=== PATIENT | female | born 1970 | race African-American/Black ===

== ENCOUNTER 2019-01-30 13:42 | Inpatient (IN) | payer SELFPAY ==
[2019-01-30] MEDS ORDERED: ONDANSETRON *ODT* 4 MG TABLET SL ONE (13:47)
--- NOTE | 2019-01-30 13:52 | PDOC ---
Rapid Medical Evaluation Chief Complaint: Nausea/Vomiting Time Seen by Provider: 01/30/19 13:47 Medical Evaluation: Allergies Allergy/AdvReac Type Severity Reaction Status Date / Time No Known Allergies Allergy Verified 01/30/19 13:46 01/30/19 13:49 I have performed a brief in-person evaluation of this patient. The patient presents with a chief complaint of: h/o DM presenting with complains of persistent nausea and vomiting since yesterday. report eating home cooked vegetables and cheeses yesterday before symptoms started. Denies fever, chills Pertinent physical exam findings: A&O in moderate distress vomiting in triage I have ordered the following: CBC, CMP, lipase. zofran The patient will proceed to the ED for further evaluation. Discharge Disposition - Diagnosis Nausea & vomiting Qualifiers: Vomiting type: bilious vomiting Qualified Code(s): R11.14 - Bilious vomiting - Discharge Dispostion Condition at time of disposition: Stable - Referrals - Patient Instructions - Post Discharge Activity
[2019-01-30] MEDS ORDERED: SODIUM CHLORIDE 0.9% 500 ML INFUS.BAG IV ONE (14:35)
[2019-01-30] MEDS ORDERED: ONDANSETRON 4 MG/2 ML VIAL ONE (14:37)
--- NOTE | 2019-01-30 14:48 | PDOC ---
History of Present Illness - General History Source: Patient Exam Limitations: No Limitations - History of Present Illness Initial Comments: 01/30/19 14:41 Source: Pt, poor historian, tangential answers HPI: 48yo woman h/o DM (diet controlled), cholesterol (diet controlled), and uterine fibroids (painful during 1st , not subsequent two) presenting with 1 day of nausea/vomiting. Pt was in [place] until yesterday midday when she vomited up her meal of veggies / fat free cheese / milk. She reports she only eats home prepared food and has eaten these many times before. Endorses lack of sleep 2/2 abdominal pain. Poor historian, difficult to ascertain details about her abdominal pain aside from epigastric, severe, with accompanying n/v, sudden onset. Denies fevers, chills, weakness, SOB, dizziness, CP, nightsweats, travel , diarrhea (last BM day before yesterday). Attempted drinking V8 juice several times, each time vomiting. Unable to provide her LMP, says it was this month and that she is not concerned about that. All: NKDA Meds: MVI, Iron PMH: as above PSH: denies <Skyler Kirkland - Last Filed: 01/31/19 00:10> <Maria Guadalupe Mccann - Last Filed: 02/09/19 00:41> - General Chief Complaint: Nausea/Vomiting Stated Complaint: ABD PAIN / VOMITING Time Seen by Provider: 01/30/19 13:47 Past History - Travel Traveled outside of the country in the last 30 days: No Close contact w/someone who was outside of country & ill: No - Past Medical History Asthma: No Cancer: No Cardiac Disorders: No COPD: No Diabetes: Yes HTN: No Seizures: No Thyroid Disease: No - Reproductive History Is Patient Now?: No - Immunization History Immunization Up to Date: Yes - Suicide/Smoking/Psychosocial Hx Smoking Status: No Smoking History: Never smoked Number of Cigarettes Smoked Daily: 0 Hx Alcohol Use: No Drug/Substance Use Hx: No Hx Substance Use Treatment: No <Skyler Kirkland - Last Filed: 01/31/19 00:10> <Maria Guadalupe Mccann - Last Filed: 02/09/19 00:41> - Past Medical History Allergies/Adverse Reactions: Allergies Allergy/AdvReac Type Severity Reaction Status Date / Time No Known Allergies Allergy Verified 01/30/19 13:46 Home Medications: Ambulatory Orders Ferrous Sulfate [Iron] 325 mg PO DAILY 01/31/19 Review of Systems - Review of Systems Able to Perform ROS?: Yes (Indirect answers) Is the patient limited Maldivian proficient: Yes Constitutional: Yes: Loss of Appetite. No: Chills, Fever, Night Sweats, Weakness HEENTM: No: Symptoms Reported Respiratory: No: Symptoms reported Cardiac (ROS): No: Symptoms Reported ABD/GI: Yes: Symptoms Reported, See HPI, Nausea, Poor Appetite, Poor Fluid Intake, Vomiting. No: Abdominal Distended, Constipated, Diarrhea, Indigestion : No: Symptoms Reported Musculoskeletal: No: Symptoms Reported Integumentary: No: Symptoms Reported Neurological: No: Symptoms reported All Other Systems: Reviewed and Negative <Skyler Kirkland - Last Filed: 01/31/19 00:10> *Physical Exam - Vital Signs Last Vital Signs Temp Pulse Resp BP Pulse Ox 98.1 F 85 18 119/64 100 01/30/19 13:47 01/30/19 13:47 01/30/19 13:47 01/30/19 13:47 01/30/19 13:47 - Physical Exam Comments: 01/30/19 14:50 Vitals reviewed, afebrile, HDS Gen: Thin woman laying in bed on her side with emesis bag beside her CV: RRR, nl s1/s2, no murmurs appreciated Pulm: CTABL, no wheezes / rales / rhonchi, normal work of breathing Abd: Soft, no reboudn or guarding, nontender throughout based on reactions - reportedly "painful" in epigastrum, no scars or markings Ext: WWP, no clubbing / cyanosis / edema Pulses: 2+ radial and PT <Skyler Kirkland - Last Filed: 01/31/19 00:10> - Vital Signs Last Vital Signs Temp Pulse Resp BP Pulse Ox 99.4 F 70 20 98/48 L 97 02/01/19 13:55 02/01/19 13:55 02/01/19 13:55 02/01/19 13:55 01/31/19 21:00 <Maria Guadalupe Mccann - Last Filed: 02/09/19 00:41> ED Treatment Course - LABORATORY CBC & Chemistry Diagram: 01/30/19 15:30 01/30/19 20:40 <Skyler Kirkland - Last Filed: 01/31/19 00:10> - LABORATORY CBC & Chemistry Diagram: 02/01/19 06:05 02/01/19 06:05 - ADDITIONAL ORDERS Additional order review: 01/30/19 15:16 Urine Culture - Final Urine - Urine Clean Catch Staphylococcus Aureus 01/30/19 15:30 RBC 4.25 MCV 88.1 MCHC 34.2 RDW 13.6 MPV 10.1 Neutrophils % 83.5 H Lymphocytes % 11.0 Monocytes % 5.2 Eosinophils % 0.1 Basophils % 0.2 - Medications Given in the ED: ED Medications Discontinued Medications Generic Name Dose Route Start Last Admin Trade Name Munir PRN Reason Stop Dose Admin Acetaminophen 650 mg 01/30/19 16:21 01/30/19 16:44 Tylenol - PO 01/30/19 16:22 650 mg ONCE ONE Administration Acetaminophen 650 mg 01/31/19 01:11 01/31/19 02:05 Tylenol - PO 01/31/19 01:12 Not Given ONCE ONE Al Hydroxide/Mg Hydroxide 30 ml 01/30/19 16:16 01/30/19 16:44 Mylanta Oral Suspension - PO 01/30/19 16:17 30 ml ONCE ONE Administration Glycerin 1 each 01/31/19 11:30 01/31/19 14:53 Glycerin Suppository Adult - RC 01/31/19 11:31 1 each ONCE ONE Administration Heparin Sodium (Porcine) 5,000 unit 01/31/19 02:00 01/31/19 17:45 Heparin - SQ 5,000 unit Q8H EDILBERTO Administration Heparin Sodium (Porcine) 5,000 unit 02/01/19 06:00 02/01/19 13:37 Heparin - SQ 5,000 unit TID EDILBERTO Administration Famotidine/Sodium Chloride 20 mg in 50 mls @ 100 mls/hr 01/30/19 16:15 16:44 Pepcid 20 Mg Premixed Ivpb - IVPB 01/30/19 16:44 100 mls/hr ONCE ONE Administration Sodium Chloride 1,000 mls @ 100 mls/hr 01/30/19 19:54 01/30/19 20:17 Normal Saline - IV 01/31/19 05:53 100 mls/hr ASDIR STA Administration Sodium Chloride 1,000 mls @ 100 mls/hr 01/30/19 23:22 01/30/19 23:50 Normal Saline - IV 01/31/19 09:21 100 mls/hr ASDIR STA Administration Sodium Chloride 1,000 mls @ 1,000 mls/hr 01/31/19 00:11 01/31/19 01:10 Normal Saline - IV 01/31/19 01:10 1,000 mls/hr ASDIR STA Administration Famotidine/Sodium Chloride 20 mg in 50 mls @ 100 mls/hr 01/31/19 01:10 02:05 Pepcid 20 Mg Premixed Ivpb - IVPB 01/31/19 01:39 100 mls/hr ONCE ONE Administration Lactated Ringer's 1,000 mls @ 75 mls/hr 01/31/19 01:15 01/31/19 02:05 Lactated Ringers Solution IV 75 mls/hr ASDIR EDILBERTO Administration Potassium Chloride/Dextrose/Sod Cl 20 meq in 1,000 mls @ 100 mls/hr 01/31/19 13:15 02/01/19 01:54 D5-1/2ns+20 Meq Kcl - IV 100 mls/hr ASDIR EDILBERTO Administration Insulin Aspart 0 vial 01/31/19 07:00 01/31/19 12:19 Novolog Vial Sliding Scale - SQ Not Given ACHS [facility] Protocol Ketorolac Tromethamine 30 mg 01/30/19 17:39 01/30/19 18:11 Toradol Injection - IVPUSH 01/30/19 17:40 30 mg ONCE ONE Administration Ondansetron HCl 4 mg 01/30/19 13:47 01/30/19 15:42 Zofran Odt - SL 01/30/19 13:48 4 mg ONCE ONE Administration Sodium Chloride 1,000 ml 01/30/19 14:35 01/30/19 15:42 Normal Saline - IV 01/30/19 14:36 1,000 ml ONCE ONE Administration <Maria Guadalupe Mccann - Last Filed: 02/09/19 00:41> Medical Decision Making - Medical Decision Making 01/30/19 15:08 48yo woman with diet controlled DM/HLD presenting with acute nausea, vomiting, and stomach pain. Presentation c/w gastritis but concerning for DKA or ACS in a patient with limited use of healthcare. -CBC, CMP, Cardiac Profile, BGM, Lipase, Acetone -1L IVF bolus -Zofran 01/30/19 16:20 -POCUS gall bladder study without acute pathology -Pepcid -Maalox -PO Tylenol -CBC, CMP, Cardiac profile, BGM unremarkable 01/30/19 17:06 -No serum acetone -Plan for reassessment after GI cocktail -Tentative: home with GI f/u, pepcid, zofran 01/30/19 17:40 -Pt reassessed at bedside, still in pain, no nausea -Toradol 30mg IV ordered -Fever 100.6 -CTAP w/ contrast, patient refuses all PO including contrast, emesis recently in the ED 01/30/19 19:24 -CTAP with questionable pneumoperitoneum, abdominal edema -Exam unimproved, mounted fever after tylenol, remains unable to tolerate PO -Admit med/surg, consult surgery 01/30/19 19:40 -Surgery wants IVF, repeat study with oral and IV contrast to further characterize 01/30/19 20:05 -Pt given oral contrast -Repeat BMP, Lactate ordered -IVF bolus and maintenance ordered 01/30/19 22:38 -Repeat CTAP with oral and IV contrast ordered in interval -Spoke with radiologist now, tech to accept patient for IV contrast -Cr 0.7 from 0.6 after first scan, interval 2L IVF given -Lactate 1.7 01/30/19 23:00 -Left message with compensation director 01/31/19 23:40 -CTAP with IV and PO contrast completed -IVF continued post procedure Pt endorsed to hospitalist and signed out to overnight team <Skyler Kirkland - Last Filed: 01/31/19 00:10> *DC/Admit/Observation/Transfer - Discharge Dispostion Decision to Admit order: Yes <Skyler Kirkland - Last Filed: 01/31/19 00:10> - Discharge Dispostion Decision to Admit order: Yes <Maria Guadalupe Mccann - Last Filed: 02/09/19 00:41> Diagnosis at time of Disposition: Nausea & vomiting - Discharge Dispostion Condition at time of disposition: Fair
[2019-01-30 15:39] LABS: EPI CELLS 11.6 /HPF (0-5/HPF); HYALINE CASTS 12 /lpf (0-8); PH,URINE 5.5 (5.0-8.0); URINE APPEARANCE CLEAR; URINE BILIRUBIN NEGATIVE (NEGATIVE); URINE COLOR YELLOW; URINE GLUCOSE (UA) NEGATIVE (NEGATIVE); URINE KETONE TRACE (NEGATIVE); URINE LEUK ESTERASE TRACE (NEGATIVE); URINE NITRITE NEGATIVE (NEGATIVE); URINE PROTEIN NEGATIVE (NEGATIVE); URINE RBC 2 /hpf (0-4); URINE UROBILINOGEN 0.2 mg/dL (0.2-1.0); URINE WBC 8 /hpf (0-5)
[2019-01-30 16:15] LABS: BASO % 0.2 % (0-2.0); EOS % 0.1 % (0-4.5); HEMATOCRIT 37.5 % (32.4-45.2); HEMOGLOBIN 12.8 GM/dL (10.7-15.3); MCH 30.1 pg (25.7-33.7); MCHC 34.2 g/dl (32.0-36.0); MEAN CELL VOLUME 88.1 fl (80-96); MEAN PLT VOLUME 10.1 fl (7.5-11.1); MONO % 5.2 % (3.8-10.2); NEUT % 83.5 % (42.8-82.8); PLATELET COUNT 251 K/MM3 (134-434); RBC 4.25 M/mm3 (3.60-5.2); RDW 13.6 % (11.6-15.6); WHITE BLOOD COUNT 4.9 K/mm3 (4.0-10.0)
[2019-01-30] MEDS ORDERED: FAMOTIDINE 20 MG/50 ML IVPB 20 MG/50 ML MG IVPB ONE ×2 (16:15→16:33)
[2019-01-30] MEDS ORDERED: MAG HYDROX/AL HYDROX/SIMETH 30 ML UNIT-DOSE CUP PO ONE (16:16)
--- NOTE | 2019-01-30 16:17 | PDOC ---
Documentation entered by Jossy Álvarez SCRIBE, acting as scribe for Maria Guadalupe Mccann MD. Maria Guadalupe Mccann MD: This documentation has been prepared by the scribe, Jossy Álvarez SCRIBE, under my direction and personally reviewed by me in its entirety. I confirm that the documentation accurately reflects all work, treatment, procedures, and medical decision making performed by me. Attending Attestation - Resident Resident Name: IsaelSkyler - ED Attending Attestation I have performed the following: I have examined & evaluated the patient, The case was reviewed & discussed with the resident, I agree w/resident's findings & plan, Exceptions are as noted - HPI HPI: 01/30/19 15:07 The patient 48-year-old female, with a past medical history of DM, HLD (diet- controlled), and uterine fibroids, who presents to the ED with nausea and vomiting x1 day. The patient states that she threw up her meal at home around noon yesterday. Since then she has been trying to drink V8 juice and water but is unable to tolerate them. She is also complaining of epigastric pain that is similar in quality to her fibroid pain that she experienced with her first . LBM was 2 days ago. The patient denies any fevers, chills, diarrhea, or constipation. Denies any chest pain or shortness of breath. Denies any urinary symptoms. Denies any headache, dizziness, lightheadedness, or changes in strength or sensation. Allergies: NKA - Physicial Exam PE: 01/30/19 15:08 NAD, well appearing, EOMI, PERRL, MMM, nl conjunctiva, anicteric; neck supple. lungs clear, RRR, abdomen soft nondistended, +epigastric TTP, no rebound or guarding, no carlson's sign. Back nontender. JORDAN x4, no focal neuro deficits. No peripheral edema. normal color for ethnicity, WWP. 01/30/19 16:16 - Medical Decision Making 01/30/19 16:16 See HPI for details. Prior notes reviewed, including admissions, discharges and consultations. Vital signs reviewed, wnl. Vital Signs Temp Pulse Resp BP Pulse Ox 98.1 F 85 18 119/64 100 01/30/19 13:47 01/30/19 13:47 01/30/19 13:47 01/30/19 13:47 01/30/19 13:47 DDx abdominal pain: Renal colic, biliary colic, metabolic/electrolyte derangements. GERD, PUD, esophageal spasm, pancreatitis, hepatitis, constipation , colitis, gastroenteritis, cholecystitis, UTI, pyelonephritis, ileus, SBO, medication side effect, hernia, appendicitis, diverticulitis, DKA, [facility] laboratory results and imaging reviewed, basic labs and lytes wnl, notable for neg acetones, so doubt DKA or acidosis LFTs/lipase_wnl UA_neg for infection, trace ketone. no s/s infection, f/u culture Cardiac panel_neg trop/ck EKG normal sinus rhythm at 70 bpm, no interval abnormalities, narrow QRS, ST and T wave segments and morphology normal. Nonspecific T wave abnormalities / flattening in all leads, similar to prior ED course -interventions: GI cocktail, zofran, IVF, reassess bedside biliary sono neg for gallstones/no fluid or wall edema, so doubt cholecystitis abdomen is soft. 01/30/19 17:25 - reassess, still having abdominal pain,unable to tolerate PO CT a/p with IV only to check for abdominal pathology/obstruction/infection. ?mesenteric edema and small pneumoperitoneum, small perf? PO contrast to further elucidate, not given initially due to inability to tolerate. surg cs Dr Hinojosa, recs include repeat labs, lactic, IVF, maintenance, will be consulted. will try PO contrast in meantime, if Cr fine, repeat CT with IV contrast spoke with Dr Harmon and discussed the above plan and concerns, with pt not appearing peritoneal at this time and stable for re imaging and admit. Will require serial abdominal exams, given inability to kinsey PO and significant abdominal pain x 6 hours while in the ED admit to hospitalist service for medical management with surgery to follow 01/30/19 19:48 01/31/19 14:22
[2019-01-30] MEDS ORDERED: ACETAMINOPHEN 325 MG TABLET (FP) PO ONE (16:21)
[2019-01-30] MEDS ORDERED: ACETAMINOPHEN 325 MG TABLET (FP) ONE (16:33)
[2019-01-30] MEDS ORDERED: MAG HYDROX/AL HYDROX/SIMETH 30 ML UNIT-DOSE CUP ONE (16:33)
[2019-01-30 16:46] LABS: ALBUMIN 4.1 g/dl (3.4-5.0); ALK PHOS 91 U/L (45-117); ANION GAP 6 MMOL/L (8-16); BILIRUBIN,TOTAL 0.4 mg/dL (0.2-1); BLOOD UREA NITROGEN 11.4 mg/dL (7-18); CALCIUM 9.3 mg/dL (8.5-10.1); CHLORIDE 105 mmol/L (98-107); CO2 27 mmol/L (21-32); CREATININE 0.6 mg/dL (0.55-1.3); GLUCOSE,RANDOM 130 mg/dL (74-106); LIPASE 137 U/L (73-393); POTASSIUM 4.1 mmol/L (3.5-5.1); SGOT/AST 18 U/L (15-37); SGPT/ALT 50 U/L (13-61); SODIUM 137 mmol/L (136-145); TOT PROT 7.7 g/dl (6.4-8.2)
[2019-01-30 16:59] LABS: ACETONE SERUM NEGATIVE (NEGATIVE)
[2019-01-30] MEDS ORDERED: KETOROLAC TROMETHAMINE 30 MG/1 ML VIAL IVPUSH ONE (17:39)
[2019-01-30] MEDS ORDERED: KETOROLAC TROMETHAMINE 30 MG/1 ML VIAL ONE (18:02)
[2019-01-30] MEDS ORDERED: SODIUM CHLORIDE 1,000 ML IV STA ×2 (19:54→23:22)
[2019-01-30 21:08] LABS: BLOOD UREA NITROGEN 9.4 mg/dL (7-18); CALCIUM 8.8 mg/dL (8.5-10.1); CREATININE 0.7 mg/dL (0.55-1.3); POTASSIUM 4.2 mmol/L (3.5-5.1)
[2019-01-31] MEDS ORDERED: SODIUM CHLORIDE 1,000 ML IV STA (00:11)
--- NOTE | 2019-01-31 00:22 | PDOC ---
*Physical Exam - Vital Signs Last Vital Signs Temp Pulse Resp BP Pulse Ox 100.6 F H 61 16 113/62 100 01/30/19 17:58 01/30/19 21:13 01/30/19 21:13 01/30/19 21:13 01/30/19 21:13 ED Treatment Course - LABORATORY CBC & Chemistry Diagram: 01/30/19 15:30 01/30/19 20:40 - ADDITIONAL ORDERS Additional order review: Laboratory Results 01/30/19 01/30/19 01/30/19 20:40 20:40 15:30 Sodium 140 137 Potassium 4.2 4.1 Chloride 109 H 105 Carbon Dioxide 25 27 Anion Gap 6 L 6 L BUN 9.4 11.4 Creatinine 0.7 0.6 Est GFR (CKD-EPI)AfAm 117.91 124.05 Est GFR (CKD-EPI)NonAf 101.74 107.03 Random Glucose 134 H 130 H Lactic Acid 1.7 Calcium 8.8 9.3 Total Bilirubin 0.4 AST 18 ALT 50 Alkaline Phosphatase 91 Creatine Kinase 106 Troponin I < 0.02 Total Protein 7.7 Albumin 4.1 Lipase 137 Urine Color Urine Appearance Urine pH Ur Specific Spencer Urine Protein Urine Glucose (UA) Urine Ketones Urine Blood Urine Nitrite Urine Bilirubin Urine Urobilinogen Ur Leukocyte Esterase Urine WBC (Auto) Urine RBC (Auto) Urine Casts (Auto) U Epithel Cells (Auto) U Sm Round Cell (Auto) Urine Bacteria (Auto) Acetone, Qual Negative L 01/30/19 15:16 Sodium Potassium Chloride Carbon Dioxide Anion Gap BUN Creatinine Est GFR (CKD-EPI)AfAm Est GFR (CKD-EPI)NonAf Random Glucose Lactic Acid Calcium Total Bilirubin AST ALT Alkaline Phosphatase Creatine Kinase Troponin I Total Protein Albumin Lipase Urine Color Yellow Urine Appearance Clear Urine pH 5.5 Ur Specific Spencer 1.028 Urine Protein Negative Urine Glucose (UA) Negative Urine Ketones Trace H Urine Blood Negative Urine Nitrite Negative Urine Bilirubin Negative Urine Urobilinogen 0.2 Ur Leukocyte Esterase Trace Urine WBC (Auto) 8 Urine RBC (Auto) 2 Urine Casts (Auto) 12 U Epithel Cells (Auto) 11.6 U Sm Round Cell (Auto) none seen Urine Bacteria (Auto) 44.0 Acetone, Qual 01/30/19 15:30 RBC 4.25 MCV 88.1 MCHC 34.2 RDW 13.6 MPV 10.1 Neutrophils % 83.5 H Lymphocytes % 11.0 Monocytes % 5.2 Eosinophils % 0.1 Basophils % 0.2 - Medications Given in the ED: ED Medications Discontinued Medications Generic Name Dose Route Start Last Admin Trade Name Munir PRN Reason Stop Dose Admin Acetaminophen 650 mg 01/30/19 16:21 01/30/19 16:44 Tylenol - PO 01/30/19 16:22 650 mg ONCE ONE Administration Al Hydroxide/Mg Hydroxide 30 ml 01/30/19 16:16 01/30/19 16:44 Mylanta Oral Suspension - PO 01/30/19 16:17 30 ml ONCE ONE Administration Famotidine/Sodium Chloride 20 mg in 50 mls @ 100 mls/hr 01/30/19 16:15 16:44 Pepcid 20 Mg Premixed Ivpb - IVPB 01/30/19 16:44 100 mls/hr ONCE ONE Administration Sodium Chloride 1,000 mls @ 100 mls/hr 01/30/19 19:54 01/30/19 20:17 Normal Saline - IV 01/31/19 05:53 100 mls/hr ASDIR STA Administration Ketorolac Tromethamine 30 mg 01/30/19 17:39 01/30/19 18:11 Toradol Injection - IVPUSH 01/30/19 17:40 30 mg ONCE ONE Administration Ondansetron HCl 4 mg 01/30/19 13:47 01/30/19 15:42 Zofran Odt - SL 01/30/19 13:48 4 mg ONCE ONE Administration Sodium Chloride 1,000 ml 01/30/19 14:35 01/30/19 15:42 Normal Saline - IV 01/30/19 14:36 1,000 ml ONCE ONE Administration Medical Decision Making - Medical Decision Making Signout received from Dr. Kirkland. F/u CT abd/pelvis, call surgeon [phone] if free air or free fluid. If not, IM Yirku admit. 01/31/19 00:21 *DC/Admit/Observation/Transfer Diagnosis at time of Disposition: Nausea & vomiting Qualifiers: Vomiting type: bilious vomiting Qualified Code(s): R11.14 - Bilious vomiting - Discharge Dispostion Condition at time of disposition: Guarded - Prescriptions Prescriptions: Famotidine [Pepcid] 20 mg PO BID #28 tablet Ondansetron HCl [Zofran] 4 mg PO TID PRN #9 tablet MDD 3 PRN Reason: Nausea And/Or Vomiting - Referrals - Patient Instructions Printed Discharge Instructions: DI for Viral Gastroenteritis -- Adult Additional Instructions: Please call and schedule followup with the GI doctor provided on discharge paperwork. Please return to the emergency room for worsening or concerning symptoms including; chest pain or inability to eat. Consider taking Maalox (available over the counter) with meals to coat the stomach and prevent upset. Two medications have been sent to your pharmacy, one you will take for two weeks (Pepcid), the other (Zofran) you will take only NEEDED for nausea and vomiting up to three times daily for 3 days. - Post Discharge Activity
[2019-01-31] MEDS ORDERED: FAMOTIDINE 20 MG/50 ML IVPB 20 MG/50 ML MG IVPB ONE ×2 (01:10→02:12)
[2019-01-31] MEDS ORDERED: ACETAMINOPHEN 325 MG TABLET (FP) PO ONE (01:11)
[2019-01-31] MEDS ORDERED: LACTATED RINGERS SOLUTION 1,000 ML IV SCH (01:15)
[2019-01-31] MEDS ORDERED: ACETAMINOPHEN 1000 MG/100 ML VIAL (NON FORMULARY) IVPB PRN (01:31)
[2019-01-31] MEDS ORDERED: ONDANSETRON 4 MG/2 ML VIAL IVPUSH PRN (01:31)
[2019-01-31] MEDS: HEPARIN NA (PORCINE) 5,000 UNITS/ML 1ML VIAL SQ SCH ×3 (02:05→17:45)
[2019-01-31] MEDS ORDERED: HEPARIN NA (PORCINE) 5,000 UNITS/ML 1ML VIAL ONE (02:12)
--- NOTE | 2019-01-31 02:16 | HP ---
<Yovany Camargo - Last Filed: 02/05/19 21:04> CHIEF COMPLAINT: stomach pain PCP: Dr. Hardik Vela HISTORY OF PRESENT ILLNESS: 48 y/o F, w/ PMH of DM type2, Hyperlipidemia, fibroids, presents to the ED with constant epigastric pain of 2 day duration w/ onset wednesday afternoon, associated with nausea and vomit. Pt reports the pain spontanously started few hours after meal. Tylenol did not help and the pt could not sleep. Pt reports CT contrast made the pain worse and she vomited twice after onset. Currently pt stated the pain has reduced but pt remains in discomfort. Denies headaches, fevers, chills, sob, chest pain, numbness, tingling, diarrhea, melena, hematemesis. ER course was notable for: (1)CT abdomen showed possible pneumoperitoneum, r/p CT was negative (2)Lactate wnl (3)EKG negative Recent Travel: no travel PAST MEDICAL HISTORY: Type 2 DM, Hyperlipidemia- 200 in October 2018, Fibroids- heavy bleed leading to iron def anemia, x3-natural delivery PAST SURGICAL HISTORY: none Social History: Smoking:n/a Alcohol:n/a Drugs: n/a Family History: noncontributory Allergies; NKDA Menstrual Hx: Menstrual cycle regular, bleeds heavy as usual due to fibroids, LMP in 01/20 No Known Allergies Allergy (Verified 01/30/19 13:46) HOME MEDICATIONS: Home Medications Iron Pills Multivitamin Medication Instructions Recorded Famotidine [Pepcid] 20 mg PO BID #28 tablet 01/30/19 Ondansetron HCl [Zofran] 4 mg PO TID PRN #9 tablet MDD 3 01/30/19 REVIEW OF SYSTEMS CONSTITUTIONAL: Absent: fever, chills, diaphoresis, generalized weakness, malaise, loss of appetite, weight change CARDIOVASCULAR: Absent: chest pain, syncope, palpitations, irregular heart rate, lightheadedness , peripheral edema RESPIRATORY: Absent: cough, shortness of breath, dyspnea with exertion, orthopnea, wheezing, stridor, hemoptysis GASTROINTESTINAL: Epigastric abdominal pain, nausea, vomiting Absent abdominal distension, diarrhea, constipation, melena, hematochezia GENITOURINARY: Absent: dysuria, frequency, urgency, hesitancy, hematuria, flank pain, genital pain SKIN: Absent: rash, itching, pallor ENDOCRINE: Absent: unexplained weight gain, unexplained weight loss, heat intolerance, cold intolerance NEUROLOGIC: Absent: headache, focal weakness or paresthesias, dizziness, unsteady gait, seizure, mental status changes, bladder or bowel incontinence PSYCHIATRIC: Absent: anxiety, depression, suicidal or homicidal ideation, hallucinations. PHYSICAL EXAMINATION Vital Signs - 24 hr Vital Signs Temperature 100.6 F H 01/30/19 17:58 Pulse Rate 61 01/30/19 21:13 Respiratory Rate 16 01/30/19 21:13 Blood Pressure 113/62 01/30/19 21:13 O2 Sat by Pulse Oximetry (%) 100 01/30/19 21:13 GENERAL: Awake, alert, and fully oriented, in no acute distress. NECK: Normal range of motion, supple without lymphadenopathy, JVD, or masses. LUNGS: Breath sounds equal, clear to auscultation bilaterally. No wheezes, and no crackles. No accessory muscle use. HEART: Regular rate and rhythm, normal S1 and S2 without murmur, rub or gallop. ABDOMEN: Soft, nontender, not distended, normoactive bowel sounds, no guarding, no rebound, no masses. No hepatomegaly or splenomegaly. Laboratory Results - last 24 hr CBC, BMP 01/30/19 15:30 01/30/19 20:40 ASSESSMENT/PLAN: 48 y/o M w/ PMH of DM type 2, Hyperlipidemia, Fibroids, presents to ED c/o of constant epigastric pain of 2 day duration likely 2/2 to gastritis r/o Gastric ulcer perforation vs pneumoperitoneum r/p CT abdomen w/ contrast- negative EKG negative r/p Abdominal exam every 2-4 hrs Blood gluc ordered- f/u IV tylenol Zofran PRN Dr. Hinojosa consulted- Recommended no surgery- recommended NPO, fluids and symptomatic treatment #DM type 2 Controlled with diet continue to monitor as inpatient Insulin sliding scale ordered Finger stick glucose FEN NPO Dispo: monitor for now, pain meds Visit type - Emergency Visit Emergency Visit: Yes ED Registration Date: 01/30/19 Care time: The patient presented to the Emergency Department on the above date and was hospitalized for further evaluation of their emergent condition. - New Patient This patient is new to me today: Yes Date on this admission: 02/05/19 - Critical Care Critical Care patient: No ATTENDING PHYSICIAN STATEMENT I saw and evaluated the patient. I reviewed the resident's note and discussed the case with the resident. I agree with the resident's findings and plan as documented. SUBJECTIVE: OBJECTIVE: ASSESSMENT AND PLAN: <Ino Mcdaniel - Last Filed: 03/30/19 03:05> [facility] PSH,reviewed and are as per chart Social history is negative for active IVDU, red-flag social concerns. Family history negative for sudden cardiac , discussed at length and was otherwise noncontributory. ATTENDING PHYSICIAN STATEMENT I saw and evaluated the patient. I reviewed the resident's note and discussed the case with the resident. I agree with the resident's findings and plan as documented. SUBJECTIVE: OBJECTIVE: ASSESSMENT AND PLAN:
[2019-01-31 03:41] VITALS: BMI 19.9
[2019-01-31] MEDS: INSULIN SLIDING SCALE (NOVOLOG) 1 VIAL SQ SCH ×2 (06:44→12:19)
--- NOTE | 2019-01-31 07:50 | PN ---
Physical Exam: SUBJECTIVE: Patient seen and examined OBJECTIVE: Vital Signs Period Temp Pulse Resp BP Sys/Cates Pulse Ox Last 24 Hr 98.1 F-100.8 F 58-85 16-20 110-119/62-67 98-100 GENERAL: The patient is awake, alert, and fully oriented, in no acute distress. HEAD: Normal with no signs of trauma. EYES: PERRL, extraocular movements intact, sclera anicteric, conjunctiva clear. No ptosis. ENT: Ears normal, nares patent, oropharynx clear without exudates, moist mucous membranes. NECK: Trachea midline, full range of motion, supple. LUNGS: Breath sounds equal, clear to auscultation bilaterally, no wheezes, no crackles, no accessory muscle use. HEART: Regular rate and rhythm, S1, S2 without murmur, rub or gallop. ABDOMEN: Soft, nontender, nondistended, normoactive bowel sounds, no guarding, no rebound, no hepatosplenomegaly, no masses. EXTREMITIES: 2+ pulses, warm, well-perfused, no edema. NEUROLOGICAL: Cranial nerves II through XII grossly intact. Normal speech, gait not observed. PSYCH: Normal mood, normal affect. SKIN: Warm, dry, normal turgor, no rashes or lesions noted Laboratory Results - last 24 hr 01/30/19 01/30/19 01/30/19 15:16 15:30 15:30 WBC 4.9 RBC 4.25 Hgb 12.8 Hct 37.5 MCV 88.1 MCH 30.1 MCHC 34.2 RDW 13.6 Plt Count 251 D MPV 10.1 Absolute Neuts (auto) 4.1 Neutrophils % 83.5 H Lymphocytes % 11.0 Monocytes % 5.2 Eosinophils % 0.1 Basophils % 0.2 Nucleated RBC % 0 Sodium 137 Potassium 4.1 Chloride 105 Carbon Dioxide 27 Anion Gap 6 L BUN 11.4 Creatinine 0.6 Est GFR (CKD-EPI)AfAm 124.05 Est GFR (CKD-EPI)NonAf 107.03 POC Glucometer Random Glucose 130 H Lactic Acid Calcium 9.3 Total Bilirubin 0.4 AST 18 ALT 50 Alkaline Phosphatase 91 Creatine Kinase 106 Troponin I < 0.02 Total Protein 7.7 Albumin 4.1 Lipase 137 Urine Color Yellow Urine Appearance Clear Urine pH 5.5 Ur Specific Gardner 1.028 Urine Protein Negative Urine Glucose (UA) Negative Urine Ketones Trace H Urine Blood Negative Urine Nitrite Negative Urine Bilirubin Negative Urine Urobilinogen 0.2 Ur Leukocyte Esterase Trace Urine WBC (Auto) 8 Urine RBC (Auto) 2 Urine Casts (Auto) 12 U Epithel Cells (Auto) 11.6 U Sm Round Cell (Auto) none seen Urine Bacteria (Auto) 44.0 Acetone, Qual Negative L 01/30/19 01/30/19 01/31/19 20:40 20:40 05:52 WBC RBC Hgb Hct MCV MCH MCHC RDW Plt Count MPV Absolute Neuts (auto) Neutrophils % Lymphocytes % Monocytes % Eosinophils % Basophils % Nucleated RBC % Sodium 140 Potassium 4.2 Chloride 109 H Carbon Dioxide 25 Anion Gap 6 L BUN 9.4 Creatinine 0.7 Est GFR (CKD-EPI)AfAm 117.91 Est GFR (CKD-EPI)NonAf 101.74 POC Glucometer 110 Random Glucose 134 H Lactic Acid 1.7 Calcium 8.8 Total Bilirubin AST ALT Alkaline Phosphatase Creatine Kinase Troponin I Total Protein Albumin Lipase Urine Color Urine Appearance Urine pH Ur Specific Gardner Urine Protein Urine Glucose (UA) Urine Ketones Urine Blood Urine Nitrite Urine Bilirubin Urine Urobilinogen Ur Leukocyte Esterase Urine WBC (Auto) Urine RBC (Auto) Urine Casts (Auto) U Epithel Cells (Auto) U Sm Round Cell (Auto) Urine Bacteria (Auto) Acetone, Qual Active Medications Generic Name Dose Route Start Last Admin Trade Name Freq PRN Reason Stop Dose Admin Acetaminophen 1,000 mg 01/31/19 01:31 Ofirmev Injection - IVPB Q6H PRN PAIN LEVEL 6-10 Heparin Sodium (Porcine) 5,000 unit 01/31/19 02:00 01/31/19 02:05 Heparin - SQ 5,000 unit Q8H EDILBERTO Administration Sodium Chloride 1,000 mls @ 100 mls/hr 01/30/19 23:22 01/30/19 23:50 Normal Saline - IV 01/31/19 09:21 100 mls/hr ASDIR STA Administration Lactated Ringer's 1,000 mls @ 75 mls/hr 01/31/19 01:15 01/31/19 02:05 Lactated Ringers Solution IV 75 mls/hr ASDIR EDILBERTO Administration Insulin Aspart 0 vial 01/31/19 07:00 01/31/19 06:44 Novolog Vial Sliding Scale - SQ Not Given ACHS EDILBERTO Protocol Ondansetron HCl 4 mg 01/31/19 01:31 Zofran Injection IVPUSH Q6H PRN NAUSEA ASSESSMENT/PLAN: ATTENDING PHYSICIAN STATEMENT I saw and evaluated the patient. I reviewed the resident's note and discussed the case with the resident. I agree with the resident's findings and plan as documented. SUBJECTIVE: OBJECTIVE: ASSESSMENT AND PLAN:
[2019-01-31 08:42] LABS: INR 1.11 (0.83-1.09); PROTHROMBIN TIME (PATIENT) 13.1 SEC (9.7-13.0)
[2019-01-31 08:43] LABS: BASO % 0.5 % (0-2.0); EOS % 0.3 % (0-4.5); MEAN PLT VOLUME 10.2 fl (7.5-11.1); WHITE BLOOD COUNT 3.6 K/mm3 (4.0-10.0)
[2019-01-31 08:45] LABS: ACTIVATED PTT 30.6 SECONDS (25.2-36.5)
[2019-01-31 09:02] LABS: BILIRUBIN,TOTAL 0.4 mg/dL (0.2-1); BLOOD UREA NITROGEN 11.3 mg/dL (7-18); CALCIUM 7.9 mg/dL (8.5-10.1); CREATININE 0.6 mg/dL (0.55-1.3); POTASSIUM 3.8 mmol/L (3.5-5.1); TOT PROT 5.6 g/dl (6.4-8.2)
[2019-01-31 09:08] LABS: HEMATOCRIT 31.7 % (32.4-45.2); HEMOGLOBIN 10.8 GM/dL (10.7-15.3); LYMPH % 26.5 % (8-40); MCH 29.8 pg (25.7-33.7); MCHC 34.1 g/dl (32.0-36.0); MEAN CELL VOLUME 87.5 fl (80-96); MONO % 9.8 % (3.8-10.2); NEUT % 62.9 % (42.8-82.8); PLATELET COUNT 176 K/MM3 (134-434); RBC 3.62 M/mm3 (3.60-5.2); RDW 13.5 % (11.6-15.6)
--- NOTE | 2019-01-31 09:29 | EKG ---
Test Reason : Blood Pressure : / mmHG Vent. Rate : 070 BPM Atrial Rate : 070 BPM P-R Int : 124 ms QRS Dur : 064 ms QT Int : 392 ms P-R-T Axes : 037 051 -29 degrees QTc Int : 423 ms NORMAL SINUS RHYTHM NONSPECIFIC T WAVE ABNORMALITY ABNORMAL ECG Confirmed by Cirilo Florentino MD ([id number]) on 01/31/2019 9:29:03 AM Referred By: Confirmed By:Cirilo Florentino MD
--- NOTE | 2019-01-31 10:07 | PN ---
Teaching Attending Note Name of Resident: Yovany Camargo ATTENDING PHYSICIAN STATEMENT I saw and evaluated the patient. I reviewed the resident's note and discussed the case with the resident. I agree with the resident's findings and plan as documented. Seen and examined; please refer to resident note for further historical information. Briefly, this is a 48 y/o female presenting with a CC epigastric pain; though tender epigastrium is not with rebound or guarding, no distention, doesnt' appear surgical. Imaging reviewed; final report on followup pending. In summation she is being admitted for suspected free air in abdomen that was not seen on followup imaging with PO contrast. Dr. Hinojosa is sgy; deferring managemetn to her. No abx. NPO, pain control, etc. VS, labs, imaging reviewed + epigastric pain but not with rebound or guarding, +BS RRR s1/2 Lungs CTAB NC AT EOMI Resting in bed, NAD, AAO Final report pending from overnight PO study; IOC report reviewed with sgy and resident team. ASSESSMENT AND PLAN: Pateint presents with abdominal pain, r/o free air NPO IVF Pain control No abx Surgical eval Appreciatre specialist input
[2019-01-31 11:11] LABS: COCAINE, UR NEGATIVE ng/ml (CUTOFF=300); METHADONE, UR NEGATIVE ng/ml (CUTOFF=300); OPIATES, URI NEGATIVE ng/ml (CUTOFF=300); PHENCYCLIDINE,URINE NEGATIVE ng/ml (CUTOFF=25); URINE AMPHETAMINES NEGATIVE ng/ml (CUTOFF=500); URINE BARBITURATES NEGATIVE ng/ml (CUTOFF=200); URINE BENZODIAZEPINES NEGATIVE ng/ml (CUTOFF=200)
[2019-01-31] MEDS ORDERED: GLYCERIN 1 RECTAL SUPPOSITORY, ADULT RC ONE (11:30)
[2019-01-31] MEDS ORDERED: PT OWN MED DRAWER 7, Y5N ONE (13:05)
--- NOTE | 2019-01-31 13:11 | CONSULT ---
Consult Consult Specialty:: General Surgery Referred by:: Osei Reardon Reason for Consultation:: ?locules of free air on CT, abd pain, n/v - History of Present Illness Chief Complaint: epigastric pain, n/v History of Present Illness: 48yo F with h/o DM (on no meds), uterine fibroids, no previous surgeries, had regular meal Wednesday (vegetables, greens, meat, cheese, bread), then a little while after, developed epigastric pain and vomited up everything she ate. She denies diarrhea - last formed BM was Wednesday. No fever/chills, no dysuria. In the ER, she had low grade temps in 100s, normal wbc and labs, though was dehydrated, and had CT with IV contrast only showing questionable few locules of air in left posterior paramedian plane which couldn't be distinguished as intramural or extramural for sure, and large uterine fibroids. It was repeated with PO and IV contrast, she was given IV fluids and pain medicine and zofran, and the second CT was read as showing no pneumoperitoneum, but with some dilated distal small bowel loops with fecalization. She was kept with persistent pain overnight, no antibiotics, and surgery was asked to assess. She is seen and examined in bed, resting comfortably. She states her pain is now gone, and she feels better. No nausea currently. No BM yet either. Voiding ok. She has been NPO. She has ambulated to bathroom. She describes a diet high in vegetables (especially green), vegetable juice, milk, no fats or oils/grease, no fruit juice. - History Source History Provided By: Patient, Medical Record Limitations to Obtaining History: Poor Historian - Past Medical History Reproductive: Yes: Fibroids ...LMP: 01/18/19 ...: No Endocrine: Yes: Diabetes Mellitus (diet-controlled per pt) - Past Surgical History Past Surgical History: Yes: None - Alcohol/Substance Use Hx Alcohol Use: No History of Substance Use: reports: None - Smoking History Smoking history: Never smoked Have you smoked in the past 12 months: No - Social History ADL: Independent Home Medications - Allergies Allergies/Adverse Reactions: Allergies Allergy/AdvReac Type Severity Reaction Status Date / Time No Known Allergies Allergy Verified 01/30/19 13:46 - Home Medications Home Medications: Ambulatory Orders NK [No Known Home Medication] 01/31/19 Home Medications (free text): pt takes multivitamins, iron only Family Disease History - Family Disease History Family History: Unremarkable (noncontributory) Review of Systems - Review of Systems Constitutional: denies: Chills, Fever Eyes: denies: Blurred Vision, Recent Change in Vision HENT: denies: Difficult Swallowing, Throat Pain Neck: denies: Swollen Glands, Tenderness Cardiovascular: denies: Chest Pain, Palpitations Respiratory: denies: Cough, SOB Gastrointestinal: reports: Abdominal Pain (with hpi), Nausea (with hpi), Vomiting (with hpi). denies: Constipation, Diarrhea Genitourinary: denies: Burning, Dysuria Musculoskeletal: reports: Back Pain (sometimes). denies: Joint Pain, Muscle Pain Integumentary: denies: Change in Color, Rash Neurological: denies: Dizziness, Headache Psychiatric: denies: Anxiety, Depression Physical Exam Vital Signs: Vital Signs Temperature 98.7 F 01/31/19 06:00 Pulse Rate 73 01/31/19 06:00 Respiratory Rate 16 01/31/19 06:00 Blood Pressure 108/57 L 01/31/19 06:00 O2 Sat by Pulse Oximetry (%) 100 01/31/19 03:00 Constitutional: Yes: No Distress, Calm, Thin Eyes: Yes: Conjunctiva Clear, EOM Intact HENT: Yes: Atraumatic, Normocephalic Neck: Yes: Supple, Trachea Midline Cardiovascular: Yes: Regular Rate and Rhythm Respiratory: Yes: Regular, CTA Bilaterally Gastrointestinal: Yes: Normal Bowel Sounds, Soft, Distention (some/protuberant, soft, some tympany), Hernia (small umbilical defect palpable). No: Tenderness, Tenderness, Epigastrium ...Rectal Exam: Yes: Deferred Renal/: No: CVA Tenderness - Left, CVA Tenderness - Right Musculoskeletal: No: Back Pain (no direct tenderness), Joint Stiffness, Joint Swelling Extremities: No: Cool, Cyanosis Edema: No Peripheral Pulses WNL: Yes Integumentary: No: Jaundice, Rash Neurological: Yes: Alert, Oriented Psychiatric: Yes: Alert, Oriented Labs: CBC, BMP 01/31/19 06:50 01/31/19 06:00 CMP Sodium 142 mmol/L (136-145) 01/31/19 06:00 Potassium 3.8 mmol/L (3.5-5.1) 01/31/19 06:00 Chloride 111 mmol/L (98-107) H 01/31/19 06:00 Carbon Dioxide 27 mmol/L (21-32) 01/31/19 06:00 Anion Gap 4 MMOL/L (8-16) L 01/31/19 06:00 BUN 11.3 mg/dL (7-18) 01/31/19 06:00 Creatinine 0.6 mg/dL (0.55-1.3) 01/31/19 06:00 Est GFR (CKD-EPI)AfAm 124.05 01/31/19 06:00 Est GFR (CKD-EPI)NonAf 107.03 01/31/19 06:00 POC Glucometer 85 UNITS (80-120) 01/31/19 11:43 Random Glucose 96 mg/dL (74-106) 01/31/19 06:00 Hemoglobin A1c % 5.2 % (4.2-6.3) 01/31/19 06:50 Lactic Acid 1.7 mmol/L (0.4-2.0) 01/30/19 20:40 Calcium 7.9 mg/dL (8.5-10.1) L 01/31/19 06:00 Total Bilirubin 0.4 mg/dL (0.2-1) 01/31/19 06:00 AST 8 U/L (15-37) L 01/31/19 06:00 ALT 34 U/L (13-61) 01/31/19 06:00 Alkaline Phosphatase 63 U/L (45-117) 01/31/19 06:00 Creatine Kinase 106 U/L (26-192) 01/30/19 15:30 Troponin I < 0.02 ng/ml (0.00-0.05) 01/30/19 15:30 Total Protein 5.6 g/dl (6.4-8.2) L 01/31/19 06:00 Albumin 3.0 g/dl (3.4-5.0) L 01/31/19 06:00 Lipase 137 U/L (73-393) 01/30/19 15:30 INR, PTT INR 1.11 (0.83-1.09) H 01/31/19 06:50 Urine Test Results Urine Color Yellow 01/30/19 15:16 Urine Appearance Clear 01/30/19 15:16 Urine pH 5.5 (5.0-8.0) 01/30/19 15:16 Ur Specific Delta 1.028 (1.010-1.035) 01/30/19 15:16 Urine Protein Negative (NEGATIVE) 01/30/19 15:16 Urine Glucose (UA) Negative (NEGATIVE) 01/30/19 15:16 Urine Ketones Trace (NEGATIVE) H 01/30/19 15:16 Urine Blood Negative (NEGATIVE) 01/30/19 15:16 Urine Nitrite Negative (NEGATIVE) 01/30/19 15:16 Urine Bilirubin Negative (NEGATIVE) 01/30/19 15:16 Ur Leukocyte Esterase Trace (NEGATIVE) 01/30/19 15:16 Microbiology 01/30/19 15:16 Urine Culture - Preliminary Urine - Urine Clean Catch Staphylococcus Species 50-60K colonies Imaging - Results X-ray: Pending Cat Scan: Report Reviewed, Image Reviewed (images reviewed from both CTs, discussed with Dr. Abdullahi: no pneumoperitoneum, air locules all appear to be intraluminal, contrast present in bladder, compressed below enlarged/fibroid uterus, some fecalization of distal small bowel with contrast mixing there and dilation of loops, sigmoid compressed behind uterus but + stool in rectum and right colon) Problem List - Problems (1) Epigastric pain Code(s): R10.13 - EPIGASTRIC PAIN (2) Nausea & vomiting Code(s): R11.2 - NAUSEA WITH VOMITING, UNSPECIFIED Qualifiers: Vomiting type: unspecified Vomiting Intractability: non-intractable Qualified Code(s): R11.2 - Nausea with vomiting, unspecified (3) Bacteriuria, asymptomatic Code(s): R82.71 - BACTERIURIA (4) Uterine leiomyoma Code(s): D25.9 - LEIOMYOMA OF UTERUS, UNSPECIFIED Qualifiers: Uterine leiomyoma location: unspecified location Qualified Code(s): D25.9 - Leiomyoma of uterus, unspecified Assessment/Plan Patient with onset of epigastric pain and vomiting, now both resolved CTs show no free air, possible functional/mechanical partial obstructive symptoms of bowel secondary to enlarged fibroid uterus asymptomatic bacteriuria <100K colonies currently without pain or tenderness will get AXR to follow contrast through presuming it has progressed to colon, would go ahead with suppository, clear liquids, and advance diet in am if tolerated check stool studies when pt does have BM (ordered) IV fluids (maintenance) until she is tolerating po recommended to pt that she f/u with [facility] regarding the fibroid uterus and possible intervention discussed earlier this morning with Dr. Mcdanile
[2019-01-31] MEDS: D5-1/2NS+20 MEQ KCL - 20 MEQ/1,000 ML INFUS.BAG IV SCH (13:19)
--- NOTE | 2019-01-31 16:05 | PN ---
Teaching Attending Note Name of Resident: Patrizia Newton ATTENDING PHYSICIAN STATEMENT I saw and evaluated the patient. I reviewed the resident's note and discussed the case with the resident. I agree with the resident's findings and plan as documented. SUBJECTIVE: No fever or chills. No abd pain. No N/V. no dysuria . last BM 2 days ago OBJECTIVE: NAD Cv: RRR Lungs: CTAB Abd: soft, hyperactive BS. distended, can't palpate the uterus. NT Ext : No edema or erythema ASSESSMENT AND PLAN: 48 y/o lady with h/o diet controlled DM, fibroids, HLP, iron def anemia , who presented with Abd pain. She was found to have small bowel obstruction 1- SBO: No N/V. constipation and fibroids might be contributing - CT scans reviewed. No free air. - d/w Dr. Hinojosa. liquid diet - supp for fecal impaction - possible regular tin am if tolerates her dinner. - No surgical intervention . - IVF - bowel regimen after c - No signs of UTI 2- H/o diet controlled Dm. Dc SSI 3- R adnexal cyst on CT scan . f/u as out pt dispo: HLOC
--- NOTE | 2019-01-31 18:22 | PN ---
Physical Exam: SUBJECTIVE: Patient seen and examined by the bedside. OBJECTIVE: Vital Signs Period Temp Pulse Resp BP Sys/Cates Pulse Ox Last 24 Hr 98.1 F-98.7 F 58-73 16-20 98-113/57-63 100-100 GENERAL: The patient is awake, alert, and fully oriented, in no acute distress. HEAD: Normal with no signs of trauma. EYES: PERRL, extraocular movements intact, sclera anicteric, conjunctiva clear. No ptosis. NECK: Trachea midline, full range of motion, supple. LUNGS: Breath sounds equal, clear to auscultation bilaterally, no wheezes, no crackles, no accessory muscle use. HEART: Regular rate and rhythm, S1, S2 without murmur, rub or gallop. ABDOMEN: Soft, nontender, nondistended, normoactive bowel sounds, no guarding, no rebound, no hepatosplenomegaly, no masses. EXTREMITIES: 2+ pulses, warm, well-perfused, no edema. NEUROLOGICAL: Cranial nerves II through XII grossly intact. Normal speech, gait not observed. PSYCH: Normal mood, normal affect. SKIN: Warm, dry, normal turgor, no rashes or lesions noted Laboratory Results - last 24 hr 01/30/19 01/30/19 01/31/19 20:40 20:40 05:52 WBC RBC Hgb Hct MCV MCH MCHC RDW Plt Count MPV Absolute Neuts (auto) Neutrophils % Lymphocytes % Monocytes % Eosinophils % Basophils % Nucleated RBC % PT with INR INR PTT (Actin FS) Sodium 140 Potassium 4.2 Chloride 109 H Carbon Dioxide 25 Anion Gap 6 L BUN 9.4 Creatinine 0.7 Est GFR (CKD-EPI)AfAm 117.91 Est GFR (CKD-EPI)NonAf 101.74 POC Glucometer 110 Random Glucose 134 H Hemoglobin A1c % Lactic Acid 1.7 Calcium 8.8 Total Bilirubin AST ALT Alkaline Phosphatase Total Protein Albumin Opiates Screen Methadone Screen Barbiturate Screen Phencyclidine Screen Ur Amphetamines Screen MDMA (Ecstasy) Screen Benzodiazepines Screen Cocaine Screen U Marijuana (THC) Screen Blood Type Antibody Screen 01/31/19 01/31/19 01/31/19 06:00 06:50 06:50 WBC 3.6 L RBC 3.62 Hgb 10.8 Hct 31.7 L D MCV 87.5 MCH 29.8 MCHC 34.1 RDW 13.5 Plt Count 176 D MPV 10.2 Absolute Neuts (auto) 2.3 Neutrophils % 62.9 D Lymphocytes % 26.5 D Monocytes % 9.8 D Eosinophils % 0.3 D Basophils % 0.5 Nucleated RBC % 0 PT with INR 13.10 H INR 1.11 H PTT (Actin FS) 30.6 Sodium 142 Potassium 3.8 Chloride 111 H Carbon Dioxide 27 Anion Gap 4 L BUN 11.3 Creatinine 0.6 Est GFR (CKD-EPI)AfAm 124.05 Est GFR (CKD-EPI)NonAf 107.03 POC Glucometer Random Glucose 96 Hemoglobin A1c % Lactic Acid Calcium 7.9 L Total Bilirubin 0.4 AST 8 L ALT 34 Alkaline Phosphatase 63 Total Protein 5.6 L Albumin 3.0 L Opiates Screen Methadone Screen Barbiturate Screen Phencyclidine Screen Ur Amphetamines Screen MDMA (Ecstasy) Screen Benzodiazepines Screen Cocaine Screen U Marijuana (THC) Screen Blood Type Antibody Screen 01/31/19 01/31/19 01/31/19 06:50 06:50 09:15 WBC RBC Hgb Hct MCV MCH MCHC RDW Plt Count MPV Absolute Neuts (auto) Neutrophils % Lymphocytes % Monocytes % Eosinophils % Basophils % Nucleated RBC % PT with INR INR PTT (Actin FS) Sodium Potassium Chloride Carbon Dioxide Anion Gap BUN Creatinine Est GFR (CKD-EPI)AfAm Est GFR (CKD-EPI)NonAf POC Glucometer Random Glucose Hemoglobin A1c % 5.2 Lactic Acid Calcium Total Bilirubin AST ALT Alkaline Phosphatase Total Protein Albumin Opiates Screen Negative Methadone Screen Negative Barbiturate Screen Negative Phencyclidine Screen Negative Ur Amphetamines Screen Negative MDMA (Ecstasy) Screen Negative Benzodiazepines Screen Negative Cocaine Screen Negative U Marijuana (THC) Screen Negative Blood Type A POSITIVE Antibody Screen Negative 01/31/19 11:43 WBC RBC Hgb Hct MCV MCH MCHC RDW Plt Count MPV Absolute Neuts (auto) Neutrophils % Lymphocytes % Monocytes % Eosinophils % Basophils % Nucleated RBC % PT with INR INR PTT (Actin FS) Sodium Potassium Chloride Carbon Dioxide Anion Gap BUN Creatinine Est GFR (CKD-EPI)AfAm Est GFR (CKD-EPI)NonAf POC Glucometer 85 Random Glucose Hemoglobin A1c % Lactic Acid Calcium Total Bilirubin AST ALT Alkaline Phosphatase Total Protein Albumin Opiates Screen Methadone Screen Barbiturate Screen Phencyclidine Screen Ur Amphetamines Screen MDMA (Ecstasy) Screen Benzodiazepines Screen Cocaine Screen U Marijuana (THC) Screen Blood Type Antibody Screen Active Medications Generic Name Dose Route Start Last Admin Trade Name Freq PRN Reason Stop Dose Admin Acetaminophen 1,000 mg 01/31/19 01:31 Ofirmev Injection - IVPB Q6H PRN PAIN LEVEL 6-10 Heparin Sodium (Porcine) 5,000 unit 01/31/19 02:00 01/31/19 17:45 Heparin - SQ 5,000 unit Q8H EDILBERTO Administration Potassium Chloride/Dextrose/Sod Cl 20 meq in 1,000 mls @ 100 mls/hr 01/31/19 13:15 01/31/19 13:19 D5-1/2ns+20 Meq Kcl - IV 100 mls/hr ASDIR EDILBERTO Administration Ondansetron HCl 4 mg 01/31/19 01:31 Zofran Injection IVPUSH Q6H PRN NAUSEA ASSESSMENT/PLAN: 48 yo F with PMH of DM, HLD, & fibroid uterus, presented to the ER with constant , sudden onset epigastric pain since 2 days started a few hours after eating, associated with nausea/vomiting. Denies headaches, fevers, chills, sob, chest pain, numbness, tingling, diarrhea, melena, hematemesis. ER course was notable for: (1)CT abdomen showed possible pneumoperitoneum, repeat CT was negative (2)Lactate normal (3)EKG NSR PAST MEDICAL HISTORY: Type 2 DM, Hyperlipidemia, Fibroids PAST SURGICAL HISTORY:none Social History: Smoking, alcohol, drugs: none Family History: Allergies; NKDA Menstrual Hx: Menstrual cycle regular, bleeds heavy as usual, LMP in 01/20 #Gastritis/Pneumoperitoneum -CT abd: fibroids, rt adenexal cyst, sig fecal impaction, pneumoperitoneum; repeat: no peritoneum, ascites, suspicion on SBO -AXR: no free air, no suspicion of SBO, repeat in AM -Surgical consult: clear diet, serial AXR, suppository, stool studies ordered -CXR: no acute pathology -EKG NSR -IV tylenol -Zofran PRN -Famotidine -UA Trace ketones -Urine cx: Staph species #Hx of Diabetes - BGM - Novolog sliding scale - no insulin at home #FEN - R/L - Clear liquids #DVT -Heparin Visit type - Emergency Visit Emergency Visit: Yes ED Registration Date: 01/30/19 Care time: The patient presented to the Emergency Department on the above date and was hospitalized for further evaluation of their emergent condition. - New Patient This patient is new to me today: Yes Date on this admission: 01/31/19 - Critical Care Critical Care patient: No - Discharge Referral Referred to [facility] No ATTENDING PHYSICIAN STATEMENT I saw and evaluated the patient. I reviewed the resident's note and discussed the case with the resident. I agree with the resident's findings and plan as documented. SUBJECTIVE: OBJECTIVE: ASSESSMENT AND PLAN:
[2019-01-31] MEDS ORDERED: MELATONIN 5 MG TABLETS PO SCH (22:00)
[2019-02-01] MEDS: D5-1/2NS+20 MEQ KCL - 20 MEQ/1,000 ML INFUS.BAG IV SCH (01:54)
[2019-02-01] MEDS: HEPARIN NA (PORCINE) 5,000 UNITS/ML 1ML VIAL SQ SCH ×2 (05:39→13:37)
[2019-02-01 06:45] VITALS: PULSE 70
[2019-02-01 07:07] LABS: HEMATOCRIT 34.6 % (32.4-45.2); HEMOGLOBIN 11.8 GM/dL (10.7-15.3); MCH 30.1 pg (25.7-33.7); MEAN CELL VOLUME 88.8 fl (80-96); MEAN PLT VOLUME 10.1 fl (7.5-11.1); PLATELET COUNT 170 K/MM3 (134-434); RDW 13.9 % (11.6-15.6); WHITE BLOOD COUNT 2.2 K/mm3 (4.0-10.0)
[2019-02-01 07:56] LABS: ALBUMIN 3.6 g/dl (3.4-5.0); BILIRUBIN,TOTAL 0.5 mg/dL (0.2-1); BLOOD UREA NITROGEN 13.6 mg/dL (7-18); CALCIUM 8.7 mg/dL (8.5-10.1); CREATININE 0.7 mg/dL (0.55-1.3); MAGNESIUM 2.4 mg/dL (1.8-2.4); POTASSIUM 3.7 mmol/L (3.5-5.1); TOT PROT 7.2 g/dl (6.4-8.2)
--- NOTE | 2019-02-01 10:26 | PN ---
Progress Note, Physician History of Present Illness: Pt with constipation, had hard BM after suppository yesterday, stool studies pending. Also with large fibroid uterus, may be locally compressing bladder and bowel. Had tea for breakfast - no food. Follows specific diet of mostly green vegetables, lean meat, milk, etc. Agrees to eat food for lunch. No pain, no complaints. Resting comfortably in bed. - Current Medication List Current Medications: Active Medications Acetaminophen (Ofirmev Injection -) 1,000 mg IVPB Q6H PRN PRN Reason: PAIN LEVEL 6-10 Heparin Sodium (Porcine) (Heparin -) 5,000 unit SQ [facility]ID [facility] Last Admin: 02/01/19 05:39 Dose: 5,000 unit Potassium Chloride/Dextrose/Sod Cl (D5-1/2ns+20 Meq Kcl -) 20 meq in 1,000 mls @ 100 mls/hr IV ASDIR [facility] Last Admin: 02/01/19 01:54 Dose: 100 mls/hr Ondansetron HCl (Zofran Injection) 4 mg IVPUSH Q6H PRN PRN Reason: NAUSEA - Objective Vital Signs: Vital Signs Temperature 98.2 F 02/01/19 06:00 Pulse Rate 70 02/01/19 06:00 Respiratory Rate 20 02/01/19 06:00 Blood Pressure 112/70 02/01/19 06:00 O2 Sat by Pulse Oximetry (%) 97 01/31/19 21:00 Constitutional: Yes: No Distress, Calm, Thin Eyes: Yes: Conjunctiva Clear, EOM Intact HENT: Yes: Atraumatic, Normocephalic Gastrointestinal: Yes: Soft, Distention (protuberant, soft). No: Tenderness, Tenderness, Epigastrium ...Rectal Exam: Yes: Deferred Extremities: No: Cool, Cyanosis Integumentary: No: Jaundice, Rash Neurological: Yes: Alert, Oriented Labs: CBC, BMP 02/01/19 06:05 02/01/19 06:05 wbc low Microbiology 01/30/19 15:16 Urine Culture - Preliminary Urine - Urine Clean Catch Staphylococcus Species 50-60K colonies only stool cx, O&P pending Problem List - Problems (1) Epigastric pain Code(s): R10.13 - EPIGASTRIC PAIN (2) Nausea & vomiting Code(s): R11.2 - NAUSEA WITH VOMITING, UNSPECIFIED Qualifiers: Vomiting type: unspecified Vomiting Intractability: non-intractable Qualified Code(s): R11.2 - Nausea with vomiting, unspecified (3) Bacteriuria, asymptomatic Code(s): R82.71 - BACTERIURIA (4) Uterine leiomyoma Code(s): D25.9 - LEIOMYOMA OF UTERUS, UNSPECIFIED Qualifiers: Uterine leiomyoma location: unspecified location Qualified Code(s): D25.9 - Leiomyoma of uterus, unspecified Assessment/Plan Patient with no pain or tenderness asymptomatic bacteriuria <100K colonies stool studies pending anticipate looser stool when contrast starts to evacuate encouraged noncaffeinated fluids in general, tammie at home - her diet is very high in fiber stop IV fluids, encourage po intake pt should f/u with [facility] regarding the fibroid uterus and possible intervention no acute surgical issues will follow peripherally - call with questions
[2019-02-01 13:56] VITALS: BP 98/48; TEMP 99.4
--- NOTE | 2019-02-01 14:01 | PN ---
Teaching Attending Note Name of Resident: Rio Dunn ATTENDING PHYSICIAN STATEMENT I saw and evaluated the patient. I reviewed the resident's note and discussed the case with the resident. I agree with the resident's findings and plan as documented. SUBJECTIVE: Patient is comfortable with no acute distress. No further abdominal pain. OBJECTIVE: Vital Signs Temperature 99.4 F 02/01/19 13:55 Pulse Rate 70 02/01/19 13:55 Respiratory Rate 20 02/01/19 13:55 Blood Pressure 98/48 L 02/01/19 13:55 O2 Sat by Pulse Oximetry (%) 97 01/31/19 21:00 GENERAL: The patient is awake, alert, and fully oriented, in no acute distress. HEAD: Normal with no signs of trauma. EYES: PERRL, extraocular movements intact, sclera anicteric, conjunctiva clear. NECK: Trachea midline, full range of motion, supple. LUNGS: Breath sounds equal, clear to auscultation bilaterally, no wheezes, no crackles, no accessory muscle use. HEART: Regular rate and rhythm, S1, S2 without murmur, rub or gallop. ABDOMEN: Soft, NT,ND, normoactive bowel sounds, no guarding, no rebound, no hepatosplenomegaly, no masses. EXTREMITIES: 2+ pulses, warm, well-perfused, no edema. NEUROLOGICAL: Cranial nerves II through XII grossly intact. Normal speech, gait not observed. PSYCH: Normal mood, normal affect. SKIN: Warm, dry, normal turgor, no rashes or lesions noted CBCD WBC 2.2 K/mm3 (4.0-10.0) L 02/01/19 06:05 RBC 3.90 M/mm3 (3.60-5.2) 02/01/19 06:05 Hgb 11.8 GM/dL (10.7-15.3) 02/01/19 06:05 Hct 34.6 % (32.4-45.2) 02/01/19 06:05 MCV 88.8 fl (80-96) 02/01/19 06:05 MCHC 34.0 g/dl (32.0-36.0) 02/01/19 06:05 RDW 13.9 % (11.6-15.6) 02/01/19 06:05 Plt Count 170 K/MM3 (134-434) 02/01/19 06:05 MPV 10.1 fl (7.5-11.1) 02/01/19 06:05 CMP Sodium 141 mmol/L (136-145) 02/01/19 06:05 Potassium 3.7 mmol/L (3.5-5.1) 02/01/19 06:05 Chloride 108 mmol/L (98-107) H 02/01/19 06:05 Carbon Dioxide 25 mmol/L (21-32) 02/01/19 06:05 Anion Gap 7 MMOL/L (8-16) L 02/01/19 06:05 BUN 13.6 mg/dL (7-18) 02/01/19 06:05 Creatinine 0.7 mg/dL (0.55-1.3) 02/01/19 06:05 Random Glucose 105 mg/dL (74-106) 02/01/19 06:05 Calcium 8.7 mg/dL (8.5-10.1) 02/01/19 06:05 Total Bilirubin 0.5 mg/dL (0.2-1) 02/01/19 06:05 AST 10 U/L (15-37) L 02/01/19 06:05 ALT 38 U/L (13-61) 02/01/19 06:05 Alkaline Phosphatase 80 U/L (45-117) 02/01/19 06:05 Total Protein 7.2 g/dl (6.4-8.2) 02/01/19 06:05 Albumin 3.6 g/dl (3.4-5.0) 02/01/19 06:05 CARDIAC ENZYMES Creatine Kinase 106 U/L (26-192) 01/30/19 15:30 Troponin I < 0.02 ng/ml (0.00-0.05) 01/30/19 15:30 Current Medications Generic Name Dose Route Start Last Admin Trade Name Freq PRN Reason Stop Dose Admin Heparin Sodium (Porcine) 5,000 unit 02/01/19 06:00 02/01/19 13:37 Heparin - SQ 5,000 unit TID EDILBERTO Administration Ondansetron HCl 4 mg 01/31/19 01:31 Zofran Injection IVPUSH Q6H PRN NAUSEA Home Medications Medication Instructions Recorded Ferrous Sulfate [Iron] 325 mg PO DAILY 07/30/19 Microbiology 01/30/19 15:16 Urine - Urine Clean Catch Urine Culture - Final Staphylococcus Aureus 01/31/19 16:20 Stool Salmonella/Shigella Culture - Preliminary NO ENTERIC PATHOGENS, 24 HOURS, ON PRIMARY PLATES 01/31/19 16:20 Stool Yersinia Culture - Preliminary NO ENTERIC PATHOGENS, 24 HOURS, ON PRIMARY PLATES 01/31/19 16:20 Stool Vibrio Culture - Final NO GROWTH OF VIBRIO SPECIES OBTAINED 01/31/19 16:20 Stool Escherichia coli 0157 Culture - Final NO GROWTH OF E COLI 0157 OBTAINED ASSESSMENT AND PLAN: Patient is a 48 y/o female with Pmhx of diet controlled DM, fibroids, HLP, iron def anemia , who presented with Abdominal pain. She was found to have small bowel obstruction # S/p SBO: No N/V. patient is comfortable with no acute distress. # constipation improved with hx of fibroids # H/o diet controlled Dm. Dc SSI # R adnexal cyst on CT scan . f/u as out pt # Patient has no fever or chills, no UTI symptoms. 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 will discharge the patient home.
--- NOTE | 2019-02-01 16:45 | DS ---
Physical Exam: SUBJECTIVE: Patient seen and examined by the bedside. OBJECTIVE: Vital Signs Period Temp Pulse Resp BP Sys/Cates Pulse Ox Last 24 Hr 98.2 F-99.4 F 56-70 20-20 98-112/48-70 97 PHYSICAL EXAM GENERAL: The patient is awake, alert, and fully oriented, in no acute distress. HEAD: Normal with no signs of trauma. EYES: PERRL, extraocular movements intact, sclera anicteric, conjunctiva clear. No ptosis. NECK: Trachea midline, full range of motion, supple. LUNGS: Breath sounds equal, clear to auscultation bilaterally, no wheezes, no crackles, no accessory muscle use. HEART: Regular rate and rhythm, S1, S2 without murmur, rub or gallop. ABDOMEN: Soft, nontender, nondistended, normoactive bowel sounds, no guarding, no rebound, no hepatosplenomegaly, no masses. EXTREMITIES: 2+ pulses, warm, well-perfused, no edema. NEUROLOGICAL: Cranial nerves II through XII grossly intact. Normal speech, gait not observed. PSYCH: Normal mood, normal affect. SKIN: Warm, dry, normal turgor, no rashes or lesions noted LABS Laboratory Results - last 24 hr 01/31/19 02/01/19 02/01/19 06:50 06:05 06:05 WBC 2.2 L RBC 3.90 Hgb 11.8 Hct 34.6 MCV 88.8 MCH 30.1 MCHC 34.0 RDW 13.9 Plt Count 170 MPV 10.1 Sodium 141 Potassium 3.7 Chloride 108 H Carbon Dioxide 25 Anion Gap 7 L BUN 13.6 Creatinine 0.7 Est GFR (CKD-EPI)AfAm 117.91 Est GFR (CKD-EPI)NonAf 101.74 Random Glucose 105 Calcium 8.7 Magnesium 2.4 Total Bilirubin 0.5 AST 10 L ALT 38 Alkaline Phosphatase 80 Total Protein 7.2 Albumin 3.6 Hep A IgM Ab Confirm Negative Hep Bs Antigen Negative Hep B Core IgM Ab Negative Hepatitis C Ab (EIA) 0.1 HOSPITAL COURSE: Date of Admission:01/30/19 48 yo F with PMH of DM, HLD, & fibroid uterus, presented to the ER with constant , sudden onset epigastric pain since 2 days started a few hours after eating, associated with nausea/vomiting. Denies headaches, fevers, chills, sob, chest pain, numbness, tingling, diarrhea, melena, hematemesis. Menstrual cycles are regular, bleeds heavy as usual, LMP in 01/20 Date of Discharge: 02/01/19 Recieved IV tylenol, Zofran, Famotidine in ER. #Gastritis/Pneumoperitoneum -CT abd showed fibroids, rt adenexal cyst, sig fecal impaction, pneumoperitoneum ; repeat CT showed no pneumoperitoneum. AXR showed no free air, no suspicion of SBO. Surgical consult recommended clear diet, suppository, stool studies, no need for surgery. - Lactic Acid was 1.7 -CXR: no acute pathology -EKG: NSR -UA Trace ketones -Urine cx: Staph species #DM -Pt reports diet controlled DM, BG was 134, 96, 105 during stay. D/C with advise to follow up with PCP Dr. Hardik Garrido, Surgeon Dr. Hinojosa, and her mOB/[employer] Minutes to complete discharge: 32 Discharge Summary Reason For Visit: NAUSEA AND VOMITING Current Active Problems Bacteriuria, asymptomatic (Acute) Uterine leiomyoma (Chronic) Condition: Improved - Instructions Diet, Activity, Other Instructions: You were admitted to the hospital because of pain in your abdomen. While you were here, we performed a scan of your abdomen (X Ray and CT). Your scans showed a partial obstruction of the small bowels. You were monitored overnight, and your symptoms improved. An X Ray as well as a second CT scan showed resolution of your obstruction. Additionally, you were evaluated by our surgeon, who cleared you with no acute need for emergent surgical intervention at this time. While you were admitted, we gave you IV fluids, and medicine to manage your pain. Follow up: Please make the following appointments within one week: - With your PCP, Dr. Hardik Garrido, repeat cbc with diff in a month period - With your [employer] for the fibroids in your uterus, R adnexal cyst on CT scan please follow up with your obgyn - With our surgeon, Dr. Hinojosa Recommendations: -Please avoid drinking caffeinated beverages Additional Information: Please return to the Emergency Department if you have any of the following: Pain in your abdomen, nausea, dizziness, vomiting, shortness of breath, diarrhea , bleeding that will not stop, or persistent headache. Referrals: Bon Hinojosa MD [Staff Physician] - Disposition: HOME - Home Medications Comprehensive Discharge Medication List: Ambulatory Orders Ferrous Sulfate [Iron] 325 mg PO DAILY 01/31/19 This patient is new to me today: No Emergency Visit: Yes ED Registration Date: 01/30/19 Care time: The patient presented to the Emergency Department on the above date and was hospitalized for further evaluation of their emergent condition. Critical Care patient: No - Discharge Referral Referred to [facility] No ATTENDING PHYSICIAN STATEMENT I saw and evaluated the patient. I reviewed the resident's note and discussed the case with the resident. I agree with the resident's findings and plan as documented. SUBJECTIVE: OBJECTIVE: ASSESSMENT AND PLAN:
== END 2019-02-01 17:10 | disposition home or self-care (01) | DRG 390 ==
LOC: JER 13:42 → JERBED 19:26 → J5S 01-31 02:50
PROVIDERS: ADMIT Internal Medicine; ATTEND Internal Medicine
DX: K56.609 Unspecified intestinal obstruction, unspecified as to partial versus complete obstruction (principal); E78.5 Hyperlipidemia, unspecified; E11.9 Type 2 diabetes mellitus without complications; D25.9 Leiomyoma of uterus, unspecified; A08.4 Viral intestinal infection, unspecified; R10.13 Epigastric pain; R82.71 Bacteriuria; D50.9 Iron deficiency anemia, unspecified; N85.8 Other specified noninflammatory disorders of uterus; K29.70 Gastritis, unspecified, without bleeding; K59.00 Constipation, unspecified
CPT/HCPCS: 36415; 71046-TC-FY; 74019-TC-FY; 74177-TC; 80048; 80053; 80074; 80307; 81003; 82009; 82550; 82962; 83036; 83605; 83690; 83735; 84484; 85025; 85027; 85610; 85730; 86850; 86900; 86901; 87045; 87046; 87086; 87177; 87186; 87209; 93005; 93010; 99285-25; J1644; J7030; Q0162; Q9967